=== PATIENT | female | born 1945 | race Caucasian/White ===

== ENCOUNTER 2016-07-18 09:20 | Outpatient (CLI) | payer MEDICARE, MEDICAID | END 2016-07-18 09:21 | disposition home or self-care (01) | DX: E11.9 Type 2 diabetes mellitus without complications (principal) ==

== ENCOUNTER 2016-08-15 08:45 | Outpatient (CLI) | payer MEDICARE, MEDICAID ==
[2016-08-15 09:18] LABS: BASOPHILS # (AUTO) 0.1 10^3/uL (0.0-0.1); BASOPHILS % (AUTO) 0.6 %; EOSINOPHILS # (AUTO) 0.2 10^3/uL (0.0-0.7); EOSINOPHILS % (AUTO) 1.7 %; HCT - HEMATOCRIT 35.5 % (37.0-47.0); HGB - HEMOGLOBIN 12.1 g/dL (12.0-16.0); LYMPHOCYTES # (AUTO) 1.8 10^3/uL (1.5-3.5); LYMPHOCYTES % (AUTO) 18.1 %; MEAN CORPUSCULAR HEMOGLOBIN 32.2 pg (27.0-31.0); MEAN CORPUSCULAR HGB CONC 34.1 g/dL (32.0-36.0); MEAN CORPUSCULAR VOLUME 94.3 fL (81.0-99.0); MONOCYTES # (AUTO) 0.6 10^3/uL (0.0-1.0); MONOCYTES % (AUTO) 5.4 %; NEUTROPHILS # (AUTO) 7.5 10^3/uL (1.5-6.6); NEUTROPHILS % (AUTO) 74.2 %; RED BLOOD COUNT 3.76 10^6/uL (4.20-5.40); RED CELL DISTRIBUTION WIDTH 12.6 % (12.0-15.0); UNCORRECTED WHITE BLOOD COUNT 10.2 x10^3/uL; WHITE BLOOD COUNT 10.2 x10^3/uL (4.8-10.8)
[2016-08-15 09:40] LABS: FERRITIN 457.4 ng/mL (11.0-306.8)
[2016-08-15 09:44] LABS: CREATININE 1.9 mg/dL (0.4-1.0); PHOSPHORUS 3.3 mg/dL (2.5-4.6)
== END 2016-08-15 08:46 | disposition home or self-care (01) ==
LOC: LAB 08:45
PROVIDERS: ATTEND Internal Medicine Nephrology
DX: N05.9 Unspecified nephritic syndrome with unspecified morphologic changes (principal); I50.9 Heart failure, unspecified; D70.9 Neutropenia, unspecified; D50.0 Iron deficiency anemia secondary to blood loss (chronic); E83.30 Disorder of phosphorus metabolism, unspecified; N25.81 Secondary hyperparathyroidism of renal origin
CPT/HCPCS: 36415; 80048; 82728; 83540; 83880; 83970; 84100; 84466; 85025

== ENCOUNTER 2016-10-21 09:25 | Outpatient (CLI) | payer MEDICARE, MEDICAID | END 2016-10-21 09:26 | disposition home or self-care (01) | DX: E11.9 Type 2 diabetes mellitus without complications (principal) ==

== ENCOUNTER 2017-01-09 09:00 | Outpatient (CLI) | payer MEDICARE, MEDICAID ==
[2017-01-09 13:50] LABS: HCT - HEMATOCRIT 34.3 % (37.0-47.0); HGB - HEMOGLOBIN 11.7 g/dL (12.0-16.0); MEAN CORPUSCULAR HEMOGLOBIN 31.9 pg (27.0-31.0); MEAN CORPUSCULAR VOLUME 93.9 fL (81.0-99.0); MEAN PLATELET VOLUME 9.4 fL (7.9-10.8); RED BLOOD COUNT 3.66 10^6/uL (4.20-5.40); RED CELL DISTRIBUTION WIDTH 12.4 % (12.0-15.0); WHITE BLOOD COUNT 10.3 x10^3/uL (4.8-10.8)
[2017-01-09 14:23] LABS: CALCIUM 8.9 mg/dL (8.5-10.3); CREATININE 1.6 mg/dL (0.4-1.0); PHOSPHORUS 2.6 mg/dL (2.5-4.6); POTASSIUM 3.9 mmol/L (3.5-5.0)
== END 2017-01-09 09:01 | disposition home or self-care (01) ==
LOC: LAB.N 09:00
PROVIDERS: ATTEND Internal Medicine Nephrology
DX: N05.9 Unspecified nephritic syndrome with unspecified morphologic changes (principal); D63.1 Anemia in chronic kidney disease; N25.81 Secondary hyperparathyroidism of renal origin
CPT/HCPCS: 36415; 80048; 83880; 83970; 84100

== ENCOUNTER 2017-01-20 07:53 | Outpatient (CLI) | payer MEDICARE, MEDICAID ==
[2017-01-20 13:11] LABS: HEMOGLOBIN A1C 0.6 g/dL
== END 2017-01-20 07:54 | disposition home or self-care (01) ==
LOC: LAB.N 07:53
PROVIDERS: ATTEND Nurse Practitioner Gerontology
DX: E11.9 Type 2 diabetes mellitus without complications (principal)
CPT/HCPCS: 36415; 83036

== ENCOUNTER 2017-05-01 10:24 | Outpatient (CLI) | payer MEDICARE, MEDICAID ==
[2017-05-01 13:36] LABS: HEMOGLOBIN A1C 0.55 g/dL
== END 2017-05-01 10:25 | disposition home or self-care (01) ==
LOC: LAB.N 10:24
PROVIDERS: ATTEND Nurse Practitioner Gerontology
DX: E11.9 Type 2 diabetes mellitus without complications (principal)
CPT/HCPCS: 36415; 83036

== ENCOUNTER 2017-08-05 08:00 | Outpatient (CLI) | payer MEDICARE, MEDICAID ==
[2017-08-05 13:08] LABS: BASOPHILS # (AUTO) 0.3 10^3/uL (0.0-0.1); BASOPHILS % (AUTO) 2.2 %; EOSINOPHILS # (AUTO) 0.3 10^3/uL (0.0-0.7); EOSINOPHILS % (AUTO) 2.3 %; HGB - HEMOGLOBIN 11.5 g/dL (12.0-16.0); LYMPHOCYTES # (AUTO) 2.4 10^3/uL (1.5-3.5); LYMPHOCYTES % (AUTO) 18.8 %; MEAN CORPUSCULAR HEMOGLOBIN 31.9 pg (27.0-31.0); MEAN CORPUSCULAR HGB CONC 34.9 g/dL (32.0-36.0); MEAN CORPUSCULAR VOLUME 91.4 fL (81.0-99.0); MEAN PLATELET VOLUME 8.6 fL (7.9-10.8); MONOCYTES # (AUTO) 0.7 10^3/uL (0.0-1.0); MONOCYTES % (AUTO) 5.7 %; NEUTROPHILS # (AUTO) 9.1 10^3/uL (1.5-6.6); PLT - PLATELET COUNT 308 10^3/uL (130-450); RED BLOOD COUNT 3.59 10^6/uL (4.20-5.40); RED CELL DISTRIBUTION WIDTH 12.3 % (12.0-15.0); WHITE BLOOD COUNT 12.9 x10^3/uL (4.8-10.8)
[2017-08-05 13:22] LABS: ALBUMIN 3.9 g/dL (3.2-5.5); ALBUMIN/GLOBULIN RATIO 1.1 (1.0-2.2); BILIRUBIN,TOTAL 0.4 mg/dL (0.2-1.0); CALCIUM 8.5 mg/dL (8.5-10.3); TOTAL PROTEIN 7.6 g/dL (6.7-8.2)
[2017-08-05 17:32] LABS: HB2 TOTAL 11.7 g/dL; HEMOGLOBIN A1C 0.44 g/dL; HEMOGLOBIN A1C % 5.6 % (4.6-6.2)
== END 2017-08-05 08:01 | disposition home or self-care (01) ==
LOC: LAB.N 08:00
PROVIDERS: ATTEND Nurse Practitioner Gerontology
DX: N18.4 Chronic kidney disease, stage 4 (severe) (principal); E11.9 Type 2 diabetes mellitus without complications
CPT/HCPCS: 36415; 80053; 82043; 83036; 85025

== ENCOUNTER 2017-09-04 09:03 | Outpatient (CLI) | payer MEDICARE, MEDICAID ==
[2017-09-04 12:41] LABS: HGB - HEMOGLOBIN 10.8 g/dL (12.0-16.0); MEAN CORPUSCULAR HEMOGLOBIN 31.8 pg (27.0-31.0); MEAN CORPUSCULAR VOLUME 93.5 fL (81.0-99.0); MEAN PLATELET VOLUME 8.8 fL (7.9-10.8); RED BLOOD COUNT 3.39 10^6/uL (4.20-5.40); RED CELL DISTRIBUTION WIDTH 12.4 % (12.0-15.0); WHITE BLOOD COUNT 11.1 x10^3/uL (4.8-10.8)
[2017-09-04 12:52] LABS: CALCIUM 8.3 mg/dL (8.5-10.3); CREATININE 1.8 mg/dL (0.4-1.0)
[2017-09-04 13:00] LABS: FERRITIN 510.2 ng/mL (11.0-306.8)
[2017-09-04 13:03] LABS: FOLATE 11.22 ng/mL (5.90 - >24.8)
== END 2017-09-04 09:04 | disposition home or self-care (01) ==
LOC: LAB.N 09:03
PROVIDERS: ATTEND Internal Medicine Nephrology
DX: N05.9 Unspecified nephritic syndrome with unspecified morphologic changes (principal); D70.9 Neutropenia, unspecified; D63.1 Anemia in chronic kidney disease; D50.0 Iron deficiency anemia secondary to blood loss (chronic); E11.9 Type 2 diabetes mellitus without complications
CPT/HCPCS: 36415; 80048; 82607; 82728; 82746; 83540; 84466

== ENCOUNTER 2017-11-12 09:07 | Outpatient (CLI) | payer MEDICARE, MEDICAID ==
[2017-11-12 13:21] LABS: HB2 TOTAL 11.8 g/dL; HEMOGLOBIN A1C 0.51 g/dL; HEMOGLOBIN A1C % 6.1 % (4.6-6.2)
[2017-11-12 13:27] LABS: CALCIUM 8.8 mg/dL (8.5-10.3); CREATININE 1.7 mg/dL (0.4-1.0)
== END 2017-11-12 09:08 | disposition home or self-care (01) ==
LOC: LAB.N 09:07
PROVIDERS: ATTEND Nurse Practitioner Gerontology
DX: E11.628 Type 2 diabetes mellitus with other skin complications (principal)
CPT/HCPCS: 36415; 80048; 82043; 83036

== ENCOUNTER 2018-01-22 08:03 | Outpatient (CLI) | payer MEDICARE, MEDICAID ==
[2018-01-22 13:52] LABS: HGB - HEMOGLOBIN 11.3 g/dL (12.0-16.0); MEAN CORPUSCULAR HEMOGLOBIN 31.5 pg (27.0-31.0); MEAN CORPUSCULAR HGB CONC 32.8 g/dL (32.0-36.0); MEAN CORPUSCULAR VOLUME 96.1 fL (81.0-99.0); MEAN PLATELET VOLUME 8.3 fL (7.9-10.8); RED BLOOD COUNT 3.59 10^6/uL (4.20-5.40); RED CELL DISTRIBUTION WIDTH 12.6 % (12.0-15.0); WHITE BLOOD COUNT 11.5 x10^3/uL (4.8-10.8)
[2018-01-22 13:54] LABS: CALCIUM 8.4 mg/dL (8.5-10.3); CREATININE 1.6 mg/dL (0.4-1.0)
== END 2018-01-22 08:04 | disposition home or self-care (01) ==
LOC: LAB.N 08:03
PROVIDERS: ATTEND Internal Medicine Nephrology
DX: N05.9 Unspecified nephritic syndrome with unspecified morphologic changes (principal); D70.9 Neutropenia, unspecified
CPT/HCPCS: 36415; 80048; 85027

== ENCOUNTER 2018-02-15 08:00 | Outpatient (CLI) | payer MEDICARE, MEDICAID ==
[2018-02-15 13:13] LABS: CALCIUM 8.8 mg/dL (8.5-10.3); CREATININE 1.8 mg/dL (0.4-1.0)
[2018-02-15 13:59] LABS: HB2 TOTAL 12.8 g/dL; HEMOGLOBIN A1C 0.54 g/dL
== END 2018-02-15 08:01 ==
LOC: LAB.N 08:00
PROVIDERS: ATTEND Nurse Practitioner Gerontology
DX: E11.29 Type 2 diabetes mellitus with other diabetic kidney complication (principal); N18.4 Chronic kidney disease, stage 4 (severe); E11.628 Type 2 diabetes mellitus with other skin complications
CPT/HCPCS: 36415; 80048; 82043; 83036

== ENCOUNTER 2018-04-12 08:07 | Outpatient (CLI) | payer MEDICARE, MEDICAID ==
[2018-04-12 09:06] LABS: CALCIUM 8.6 mg/dL (8.5-10.3); CREATININE 1.3 mg/dL (0.4-1.0); PHOSPHORUS 2.4 mg/dL (2.5-4.6)
== END 2018-04-12 08:08 | disposition home or self-care (01) ==
LOC: LAB 08:07
PROVIDERS: ATTEND Internal Medicine Nephrology
DX: N05.9 Unspecified nephritic syndrome with unspecified morphologic changes (principal); E83.30 Disorder of phosphorus metabolism, unspecified; N25.81 Secondary hyperparathyroidism of renal origin
CPT/HCPCS: 36415; 80048; 83970; 84100

== ENCOUNTER 2018-05-24 08:00 | Outpatient (CLI) | payer MEDICARE, MEDICAID ==
[2018-05-24 15:52] LABS: HEMOGLOBIN A1C 0.48 g/dL; HEMOGLOBIN A1C % 6.1 % (4.6-6.2)
== END 2018-05-24 08:01 | disposition home or self-care (01) ==
LOC: LAB.N 08:00
PROVIDERS: ATTEND Nurse Practitioner Gerontology
DX: E11.9 Type 2 diabetes mellitus without complications (principal)
CPT/HCPCS: 36415; 83036

== ENCOUNTER 2018-07-09 08:03 | Outpatient (CLI) | payer MEDICARE, MEDICAID ==
[2018-07-09 14:42] LABS: MEAN CORPUSCULAR HEMOGLOBIN 31.9 pg (27.0-31.0); MEAN CORPUSCULAR VOLUME 93.9 fL (81.0-99.0); MEAN PLATELET VOLUME 8.7 fL (7.9-10.8); RED BLOOD COUNT 3.77 10^6/uL (4.20-5.40); RED CELL DISTRIBUTION WIDTH 12.8 % (12.0-15.0); WHITE BLOOD COUNT 10.4 x10^3/uL (4.8-10.8)
[2018-07-09 15:08] LABS: CALCIUM 8.7 mg/dL (8.5-10.3)
[2018-07-09 16:16] LABS: CREATININE 1.2 mg/dL (0.4-1.0)
== END 2018-07-09 23:59 | disposition home or self-care (01) ==
LOC: LAB.N 08:03
PROVIDERS: ATTEND Internal Medicine Nephrology
DX: D70.9 Neutropenia, unspecified (principal); N05.9 Unspecified nephritic syndrome with unspecified morphologic changes; D63.1 Anemia in chronic kidney disease
CPT/HCPCS: 36415; 80048; 85027

== ENCOUNTER 2018-08-31 08:10 | Outpatient (CLI) | payer MEDICARE, MEDICAID ==
[2018-08-31 13:36] LABS: HB2 TOTAL 12.7 g/dL; HEMOGLOBIN A1C 0.49 g/dL; HEMOGLOBIN A1C % 5.7 % (4.6-6.2)
== END 2018-08-31 23:59 | disposition home or self-care (01) ==
LOC: LAB.N 08:10
PROVIDERS: ATTEND Nurse Practitioner Gerontology
DX: E11.628 Type 2 diabetes mellitus with other skin complications (principal)
CPT/HCPCS: 36415; 83036

== ENCOUNTER 2018-11-30 08:00 | Outpatient (CLI) | payer MEDICARE, MEDICAID ==
[2018-11-30 13:54] LABS: CALCIUM 8.4 mg/dL (8.5-10.3); CREATININE 1.3 mg/dL (0.4-1.0)
[2018-11-30 14:24] LABS: HB2 TOTAL 11.9 g/dL; HEMOGLOBIN A1C 0.46 g/dL; HEMOGLOBIN A1C % 5.7 % (4.6-6.2)
== END 2018-11-30 23:59 | disposition home or self-care (01) ==
LOC: LAB.N 08:00
PROVIDERS: ATTEND Physician Assistant Medical
DX: R60.0 Localized edema (principal); E78.5 Hyperlipidemia, unspecified; I12.9 Hypertensive chronic kidney disease with stage 1 through stage 4 chronic kidney disease, or unspecified chronic kidney disease; E11.22 Type 2 diabetes mellitus with diabetic chronic kidney disease; N18.4 Chronic kidney disease, stage 4 (severe)
CPT/HCPCS: 36415; 80048; 83036

== ENCOUNTER 2018-12-03 08:49 | Outpatient (CLI) | payer MEDICARE, MEDICAID ==
[2018-12-03 09:17] LABS: CALCIUM 8.3 mg/dL (8.5-10.3); CREATININE 1.3 mg/dL (0.4-1.0)
[2018-12-03 09:36] LABS: HB2 TOTAL 10.9 g/dL; HEMOGLOBIN A1C 0.44 g/dL; HEMOGLOBIN A1C % 5.8 % (4.6-6.2)
[2018-12-03 10:03] LABS: CREATININE,URINE 40.7 mg/dL
[2018-12-03 11:12] LABS: TOTAL PROTEIN,URINE TIMED < 6 mg/dL
== END 2018-12-03 08:50 | disposition home or self-care (01) ==
LOC: LAB 08:49
PROVIDERS: ATTEND Internal Medicine Nephrology
DX: N05.9 Unspecified nephritic syndrome with unspecified morphologic changes (principal); E11.9 Type 2 diabetes mellitus without complications; I50.32 Chronic diastolic (congestive) heart failure; R80.9 Proteinuria, unspecified
CPT/HCPCS: 36415; 80048; 82570; 83036; 83880; 84156

== ENCOUNTER 2019-03-08 08:00 | Outpatient (CLI) | payer MEDICARE, MEDICAID ==
[2019-03-08 14:49] LABS: HB2 TOTAL 10.8 g/dL; HEMOGLOBIN A1C 0.47 g/dL; HEMOGLOBIN A1C % 6.1 % (4.6-6.2)
== END 2019-03-08 23:59 | disposition home or self-care (01) ==
LOC: LAB.N 08:00
PROVIDERS: ATTEND Nurse Practitioner Gerontology
DX: E11.628 Type 2 diabetes mellitus with other skin complications (principal)
CPT/HCPCS: 36415; 83036

== ENCOUNTER 2019-05-25 09:12 | Outpatient (CLI) | payer MEDICARE, MEDICAID ==
[2019-05-25 13:04] LABS: BASOPHILS # (AUTO) 0.1 10^3/uL (0.0-0.1); BASOPHILS % (AUTO) 0.4 %; EOSINOPHILS # (AUTO) 0.1 10^3/uL (0.0-0.7); EOSINOPHILS % (AUTO) 0.8 %; HGB - HEMOGLOBIN 11.4 g/dL (12.0-16.0); LYMPHOCYTES # (AUTO) 1.7 10^3/uL (1.5-3.5); LYMPHOCYTES % (AUTO) 14.2 %; MEAN CORPUSCULAR HGB CONC 31.1 g/dL (32.0-36.0); MEAN CORPUSCULAR VOLUME 99.5 fL (81.0-99.0); MEAN PLATELET VOLUME 11.1 fL (7.9-10.8); MONOCYTES # (AUTO) 0.5 10^3/uL (0.0-1.0); MONOCYTES % (AUTO) 4.1 %; NEUTROPHILS # (AUTO) 9.7 10^3/uL (1.5-6.6); NEUTROPHILS % (AUTO) 79.2 %; PLT - PLATELET COUNT 344 10^3/uL (130-450); RED BLOOD COUNT 3.68 10^6/uL (4.20-5.40); RED CELL DISTRIBUTION WIDTH 12.7 % (12.0-15.0); WHITE BLOOD COUNT 12.3 x10^3/uL (4.8-10.8)
[2019-05-25 15:52] LABS: CALCIUM 8.5 mg/dL (8.5-10.3); CREATININE 1.4 mg/dL (0.4-1.0)
== END 2019-05-25 23:59 | disposition home or self-care (01) ==
LOC: LAB.N 09:12
PROVIDERS: ATTEND Physician Assistant Medical
DX: E11.628 Type 2 diabetes mellitus with other skin complications (principal)
CPT/HCPCS: 36415; 80048; 85025

== ENCOUNTER 2019-07-18 07:38 | Outpatient (CLI) | payer MEDICARE, MEDICAID ==
[2019-07-18 12:46] LABS: CALCIUM 8.5 mg/dL (8.5-10.3); CREATININE 1.6 mg/dL (0.4-1.0)
[2019-07-18 13:14] LABS: HB2 TOTAL 12.2 g/dL; HEMOGLOBIN A1C 0.63 g/dL; HEMOGLOBIN A1C % 6.9 % (4.6-6.2)
== END 2019-07-18 23:59 | disposition home or self-care (01) ==
LOC: LAB.N 07:38
PROVIDERS: ATTEND Physician Assistant Medical
DX: E11.9 Type 2 diabetes mellitus without complications (principal)
CPT/HCPCS: 36415; 80048; 83036

== ENCOUNTER 2020-11-24 08:00 | Outpatient (CLI) | payer MEDICARE, MEDICAID ==
[2020-11-24 13:42] LABS: HCT - HEMATOCRIT 28.5 % (37.0-47.0); HGB - HEMOGLOBIN 9.1 g/dL (12.0-16.0); MEAN CORPUSCULAR HEMOGLOBIN 31.4 pg (27.0-31.0); MEAN CORPUSCULAR HGB CONC 31.9 g/dL (32.0-36.0); MEAN CORPUSCULAR VOLUME 98.3 fL (81.0-99.0); MEAN PLATELET VOLUME 10.9 fL (7.9-10.8); RED BLOOD COUNT 2.9 10^6/uL (4.20-5.40); RED CELL DISTRIBUTION WIDTH 13.8 % (12.0-15.0); WHITE BLOOD COUNT 10.5 x10^3/uL (4.8-10.8)
[2020-11-24 14:01] LABS: CALCIUM 8.2 mg/dL (8.5-10.3); CREATININE 1.4 mg/dL (0.4-1.0); POTASSIUM 3.9 mmol/L (3.5-5.0)
== END 2020-11-24 23:59 | disposition home or self-care (01) ==
LOC: LAB.WCP 08:00
PROVIDERS: ATTEND Family Medicine
DX: I50.9 Heart failure, unspecified (principal)
CPT/HCPCS: 36415; 80048; 83880; 85027

== ENCOUNTER 2020-11-24 09:54 | Outpatient (CLI) | payer MEDICARE, MEDICAID ==
--- NOTE | 2020-11-24 19:23 | XRAY Report ---
PROCEDURE: Chest 2 View X-Ray INDICATIONS: CHF EXACERBATION TECHNIQUE: 2 view(s) of the chest. COMPARISON: 08/03/2015, 06/30/2016 FINDINGS: Surgical changes and devices: None. Lungs and pleura: Generalized interstitial prominence is seen. No pleural effusions or pneumothorax. Lungs are clear. There is elevation right hemidiaphragm. Mediastinum: Mediastinal contours are normal. Heart size is moderately enlarged. Bones and chest wall: No suspicious bony abnormalities. Age-appropriate degenerative changes are se en. Soft tissues appear unremarkable. IMPRESSION: Generalized interstitial prominence and cardiomegaly can be seen, which are consistent w ith the given clinical history of CHF. There is elevation of the right hemidiaphragm. If clinically appropriate, a dedicated fluoroscopic "s niff test" could be considered for evaluation of hemidiaphragm paralysis. Reviewed by: Carloz Robison MD on 11/24/2020 6:22 PM BINAT Approved by: Carloz Robison MD on 11/24/2020 6:22 PM BINTA Station ID: [id number]
== END 2020-11-24 23:59 | disposition home or self-care (01) ==
LOC: DI.N 09:54
PROVIDERS: ATTEND Family Medicine
DX: R91.8 Other nonspecific abnormal finding of lung field (principal); R93.89 Abnormal findings on diagnostic imaging of other specified body structures; I50.9 Heart failure, unspecified
CPT/HCPCS: 36415; 80048; 83880; 85027

== ENCOUNTER 2020-12-04 08:00 | Outpatient (CLI) | payer MEDICARE, MEDICAID ==
[2020-12-04 18:30] LABS: BUN - BLOOD UREA NITROGEN 25 mg/dL (6-20); CALCIUM 8.6 mg/dL (8.5-10.3); CARBON DIOXIDE - CO2 19 mmol/L (21-32); CHLORIDE 113 mmol/L (101-111); CHOL/HDL RATIO 3.3 (<4.4); CHOLESTEROL 136 mg/dL; CREATININE 1.5 mg/dL (0.4-1.0); GFR - MDRD 34 (>89); GLUCOSE 132 mg/dL (70-100); HDL CHOLESTEROL 41 mg/dL; LDL CHOLESTEROL,CALCULATED 50 mg/dL; LDL/HDL RATIO 1.2 (<4.4); POTASSIUM 4.9 mmol/L (3.5-5.0); SODIUM 139 mmol/L (135-145); TRIGLYCERIDES 225 mg/dL; VLDL CHOLESTEROL 45 mg/dL
[2020-12-04 19:54] LABS: ESTIMATED AVERAGE GLUCOSE 151 mg/dL (70-100); HEMOGLOBIN A1c% 6.9 % (4.27-6.07)
== END 2020-12-04 23:59 | disposition home or self-care (01) ==
LOC: LAB.WCP 08:00
PROVIDERS: ATTEND Family Medicine
DX: I50.9 Heart failure, unspecified (principal); E11.9 Type 2 diabetes mellitus without complications
CPT/HCPCS: 36415; 80048; 80061; 83036; 83721

== ENCOUNTER 2021-01-09 08:00 | Outpatient (CLI) | payer MEDICARE, MEDICAID ==
[2021-01-09 09:17] LABS: ALBUMIN 4.1 g/dL (3.2-5.5); ALBUMIN/GLOBULIN RATIO 1.2 (1.0-2.2); BILIRUBIN,TOTAL 0.3 mg/dL (0.2-1.0); CALCIUM 8.1 mg/dL (8.5-10.3); CREATININE 3.3 mg/dL (0.4-1.0); POTASSIUM 4.3 mmol/L (3.5-5.0); TOTAL PROTEIN 7.5 g/dL (6.7-8.2)
== END 2021-01-09 23:59 | disposition home or self-care (01) ==
LOC: LAB 08:00 → DI 08:45 → LAB 23:59
PROVIDERS: ATTEND Internal Medicine Nephrology
DX: N05.9 Unspecified nephritic syndrome with unspecified morphologic changes (principal)
CPT/HCPCS: 36415; 80053

== ENCOUNTER 2021-01-17 08:49 | Outpatient (CLI) | payer MEDICARE, MEDICAID ==
[2021-01-17 09:21] LABS: ALBUMIN/GLOBULIN RATIO 1.3 (1.0-2.2); BILIRUBIN,TOTAL 0.3 mg/dL (0.2-1.0); CALCIUM 8.3 mg/dL (8.5-10.3); CREATININE 2.5 mg/dL (0.4-1.0); POTASSIUM 4.1 mmol/L (3.5-5.0); TOTAL PROTEIN 7.1 g/dL (6.7-8.2)
== END 2021-01-17 08:50 | disposition home or self-care (01) ==
LOC: LAB 08:49
PROVIDERS: ATTEND Internal Medicine Nephrology
DX: N05.9 Unspecified nephritic syndrome with unspecified morphologic changes (principal); D70.9 Neutropenia, unspecified; D63.1 Anemia in chronic kidney disease
CPT/HCPCS: 36415; 80053

== ENCOUNTER 2021-02-06 08:37 | Outpatient (CLI) | payer MEDICARE, MEDICAID ==
[2021-02-06 09:02] LABS: BASOPHILS % (AUTO) 0.4 %; EOSINOPHILS # (AUTO) 0.2 10^3/uL (0.0-0.7); HCT - HEMATOCRIT 30.9 % (37.0-47.0); HGB - HEMOGLOBIN 10.2 g/dL (12.0-16.0); LYMPHOCYTES # (AUTO) 1.6 10^3/uL (1.5-3.5); MEAN CORPUSCULAR HEMOGLOBIN 31.6 pg (27.0-31.0); MEAN CORPUSCULAR VOLUME 95.7 fL (81.0-99.0); MEAN PLATELET VOLUME 9.5 fL (7.9-10.8); MONOCYTES # (AUTO) 0.5 10^3/uL (0.0-1.0); MONOCYTES % (AUTO) 4.5 %; NEUTROPHILS # (AUTO) 8.1 10^3/uL (1.5-6.6); NEUTROPHILS % (AUTO) 76.7 %; PLT - PLATELET COUNT 267 10^3/uL (130-450); RED BLOOD COUNT 3.23 10^6/uL (4.20-5.40); RED CELL DISTRIBUTION WIDTH 12.8 % (12.0-15.0); WHITE BLOOD COUNT 10.6 x10^3/uL (4.8-10.8)
[2021-02-06 09:16] LABS: CALCIUM 8.5 mg/dL (8.5-10.3); CREATININE 1.7 mg/dL (0.4-1.0); POTASSIUM 3.7 mmol/L (3.5-5.0)
== END 2021-02-06 08:38 | disposition home or self-care (01) ==
LOC: LAB 08:37
PROVIDERS: ATTEND Internal Medicine Nephrology
DX: N05.9 Unspecified nephritic syndrome with unspecified morphologic changes (principal); I50.32 Chronic diastolic (congestive) heart failure; D70.9 Neutropenia, unspecified; D63.1 Anemia in chronic kidney disease
CPT/HCPCS: 36415; 80048; 83880; 85025

== ENCOUNTER 2021-03-13 07:18 | Outpatient (CLI) | payer MEDICARE, MEDICAID | END 2021-03-13 07:19 | disposition home or self-care (01) | LOC: DI 07:18 | PROVIDERS: ATTEND Family Medicine | DX: I11.0 Hypertensive heart disease with heart failure (principal); I49.3 Ventricular premature depolarization | CPT/HCPCS: 93306 ==

== ENCOUNTER 2021-03-18 10:21 | Outpatient (CLI) | payer MEDICARE, MEDICAID ==
[2021-03-18 17:46] LABS: BASOPHILS # (AUTO) 0.1 10^3/uL (0.0-0.1); BASOPHILS % (AUTO) 0.6 %; EOSINOPHILS # (AUTO) 0.2 10^3/uL (0.0-0.7); EOSINOPHILS % (AUTO) 1.4 %; HCT - HEMATOCRIT 32.7 % (37.0-47.0); HGB - HEMOGLOBIN 10.1 g/dL (12.0-16.0); LYMPHOCYTES # (AUTO) 2.1 10^3/uL (1.5-3.5); LYMPHOCYTES % (AUTO) 16.5 %; MEAN CORPUSCULAR HEMOGLOBIN 30.8 pg (27.0-31.0); MEAN CORPUSCULAR HGB CONC 30.9 g/dL (32.0-36.0); MEAN CORPUSCULAR VOLUME 99.7 fL (81.0-99.0); MEAN PLATELET VOLUME 11.1 fL (7.9-10.8); MONOCYTES # (AUTO) 0.7 10^3/uL (0.0-1.0); MONOCYTES % (AUTO) 5.3 %; NEUTROPHILS # (AUTO) 9.3 10^3/uL (1.5-6.6); NEUTROPHILS % (AUTO) 74.2 %; PLT - PLATELET COUNT 320 10^3/uL (130-450); RED BLOOD COUNT 3.28 10^6/uL (4.20-5.40); RED CELL DISTRIBUTION WIDTH 13.3 % (12.0-15.0); WHITE BLOOD COUNT 12.6 x10^3/uL (4.8-10.8)
[2021-03-18 18:12] LABS: ALBUMIN/GLOBULIN RATIO 1.2 (1.0-2.2); ALKALINE PHOSPHATASE 97 IU/L (42-121); ALT ALANINE AMINOTRANSFERASE 24 IU/L (10-60); AST ASPARTATE AMINOTRANSFERASE 29 IU/L (10-42); BILIRUBIN,TOTAL 0.5 mg/dL (0.2-1.0); BUN - BLOOD UREA NITROGEN 34 mg/dL (6-20); CALCIUM 8.7 mg/dL (8.5-10.3); CARBAMAZEPINE (TEGRETOL) 5.6 ug/mL; CARBON DIOXIDE - CO2 21 mmol/L (21-32); CHLORIDE 105 mmol/L (101-111); CHOL/HDL RATIO 3.9 (<4.4); CHOLESTEROL 125 mg/dL; CREATININE 1.5 mg/dL (0.4-1.0); GFR - MDRD 34 (>89); GLUCOSE 377 mg/dL (70-100); HDL CHOLESTEROL 32 mg/dL; LDL CHOLESTEROL,CALCULATED 37 mg/dL; LDL/HDL RATIO 1.2 (<4.4); POTASSIUM 4.8 mmol/L (3.5-5.0); SODIUM 137 mmol/L (135-145); TOTAL PROTEIN 7.3 g/dL (6.7-8.2); TRIGLYCERIDES 279 mg/dL; VLDL CHOLESTEROL 56 mg/dL
[2021-03-18 18:18] LABS: THYROID STIMULATING HORMONE 3.76 uIU/mL (0.34-5.60)
[2021-03-18 20:40] LABS: ESTIMATED AVERAGE GLUCOSE 163 mg/dL (70-100); HEMOGLOBIN A1c% 7.3 % (4.27-6.07)
== END 2021-03-18 23:59 | disposition home or self-care (01) ==
LOC: LAB.WCP 10:21
PROVIDERS: ATTEND Family Medicine
DX: E11.22 Type 2 diabetes mellitus with diabetic chronic kidney disease (principal); N18.30 Chronic kidney disease, stage 3 unspecified; F20.9 Schizophrenia, unspecified
CPT/HCPCS: 36415; 80053; 80061; 80156; 83036; 83721; 84443; 85025

== ENCOUNTER 2021-03-29 09:04 | Outpatient (CLI) | payer MEDICARE, MEDICAID ==
[2021-03-29 09:28] LABS: CALCIUM 8.3 mg/dL (8.5-10.3); CREATININE 1.7 mg/dL (0.4-1.0); POTASSIUM 3.8 mmol/L (3.5-5.0)
== END 2021-03-29 09:05 | disposition home or self-care (01) ==
LOC: LAB 09:04
PROVIDERS: ATTEND Internal Medicine Nephrology
DX: N05.9 Unspecified nephritic syndrome with unspecified morphologic changes (principal); I50.32 Chronic diastolic (congestive) heart failure
CPT/HCPCS: 36415; 80048; 83880

== ENCOUNTER 2021-06-18 09:28 | Outpatient (CLI) | payer MEDICARE, MEDICAID ==
[2021-06-18 12:26] LABS: ALBUMIN 3.9 g/dL (3.2-5.5); ALBUMIN/GLOBULIN RATIO 1.3 (1.0-2.2); BILIRUBIN,TOTAL 0.3 mg/dL (0.2-1.0); CALCIUM 8.6 mg/dL (8.5-10.3); CREATININE 1.3 mg/dL (0.4-1.0); POTASSIUM 4.4 mmol/L (3.5-5.0)
[2021-06-18 12:48] LABS: ESTIMATED AVERAGE GLUCOSE 212 mg/dL (70-100)
== END 2021-06-18 23:59 | disposition home or self-care (01) ==
LOC: LAB.WCP 09:28
PROVIDERS: ATTEND Family Medicine
DX: E11.9 Type 2 diabetes mellitus without complications (principal)
CPT/HCPCS: 36415; 80053; 83036

== ENCOUNTER 2021-08-21 08:29 | Outpatient (CLI) | payer MEDICARE, MEDICAID ==
[2021-08-21 08:59] LABS: HCT - HEMATOCRIT 36.7 % (37.0-47.0); HGB - HEMOGLOBIN 11.9 g/dL (12.0-16.0); MEAN CORPUSCULAR HEMOGLOBIN 30.7 pg (27.0-31.0); MEAN CORPUSCULAR HGB CONC 32.4 g/dL (32.0-36.0); MEAN CORPUSCULAR VOLUME 94.6 fL (81.0-99.0); MEAN PLATELET VOLUME 10.4 fL (7.9-10.8); RED BLOOD COUNT 3.88 10^6/uL (4.20-5.40); WHITE BLOOD COUNT 9.4 x10^3/uL (4.8-10.8)
[2021-08-21 09:11] LABS: ALBUMIN 3.7 g/dL (3.2-5.5); ALBUMIN/GLOBULIN RATIO 1.2 (1.0-2.2); BILIRUBIN,TOTAL 0.5 mg/dL (0.2-1.0); CALCIUM 8.2 mg/dL (8.5-10.3); CREATININE 1.5 mg/dL (0.4-1.0); POTASSIUM 3.3 mmol/L (3.5-5.0); TOTAL PROTEIN 6.9 g/dL (6.7-8.2)
[2021-08-21 09:15] LABS: CREATININE,URINE 114.5 mg/dL; PROTEIN/CREATININE RATIO,URINE 0.3 (<=0.2)
== END 2021-08-21 08:30 | disposition home or self-care (01) ==
LOC: LAB 08:29
PROVIDERS: ATTEND Internal Medicine Nephrology
DX: D70.9 Neutropenia, unspecified (principal); D63.1 Anemia in chronic kidney disease; N05.9 Unspecified nephritic syndrome with unspecified morphologic changes; R80.9 Proteinuria, unspecified
CPT/HCPCS: 36415; 80053; 82570; 84156; 85027

== ENCOUNTER 2021-09-25 08:43 | Outpatient (CLI) | payer MEDICARE, MEDICAID ==
[2021-09-25 11:59] LABS: BASOPHILS # (AUTO) 0.1 10^3/uL (0.0-0.1); BASOPHILS % (AUTO) 0.5 %; EOSINOPHILS # (AUTO) 0.3 10^3/uL (0.0-0.7); EOSINOPHILS % (AUTO) 2.3 %; HCT - HEMATOCRIT 31.8 % (37.0-47.0); HGB - HEMOGLOBIN 10.6 g/dL (12.0-16.0); LYMPHOCYTES # (AUTO) 2.3 10^3/uL (1.5-3.5); LYMPHOCYTES % (AUTO) 16.1 %; MEAN CORPUSCULAR HEMOGLOBIN 30.9 pg (27.0-31.0); MEAN CORPUSCULAR HGB CONC 33.3 g/dL (32.0-36.0); MEAN CORPUSCULAR VOLUME 92.7 fL (81.0-99.0); MEAN PLATELET VOLUME 11.3 fL (7.9-10.8); MONOCYTES # (AUTO) 0.7 10^3/uL (0.0-1.0); MONOCYTES % (AUTO) 4.6 %; NEUTROPHILS # (AUTO) 10.9 10^3/uL (1.5-6.6); NEUTROPHILS % (AUTO) 74.8 %; PLT - PLATELET COUNT 353 10^3/uL (130-450); RED BLOOD COUNT 3.43 10^6/uL (4.20-5.40); RED CELL DISTRIBUTION WIDTH 13.1 % (12.0-15.0); WHITE BLOOD COUNT 14.5 x10^3/uL (4.8-10.8)
[2021-09-25 12:40] LABS: ESTIMATED AVERAGE GLUCOSE 189 mg/dL (70-100); HEMOGLOBIN A1c% 8.2 % (4.27-6.07)
[2021-09-25 12:43] LABS: THYROID STIMULATING HORMONE 2.35 uIU/mL (0.34-5.60)
[2021-09-25 12:46] LABS: ALBUMIN 4.1 g/dL (3.2-5.5); ALBUMIN/GLOBULIN RATIO 1.4 (1.0-2.2); ALKALINE PHOSPHATASE 96 IU/L (42-121); ALT ALANINE AMINOTRANSFERASE 18 IU/L (10-60); AST ASPARTATE AMINOTRANSFERASE 26 IU/L (10-42); BILIRUBIN,TOTAL 0.3 mg/dL (0.2-1.0); BUN - BLOOD UREA NITROGEN 24 mg/dL (6-20); CARBON DIOXIDE - CO2 16 mmol/L (21-32); CHLORIDE 109 mmol/L (101-111); CHOL/HDL RATIO 2.7 (<4.4); CHOLESTEROL 96 mg/dL; CREATININE 1.4 mg/dL (0.4-1.0); GFR - MDRD 37 (>89); HDL CHOLESTEROL 36 mg/dL; LDL CHOLESTEROL,CALCULATED 32 mg/dL; LDL/HDL RATIO 0.9 (<4.4); POTASSIUM 3.2 mmol/L (3.5-5.0); SODIUM 137 mmol/L (135-145); TOTAL PROTEIN 7.1 g/dL (6.7-8.2); TRIGLYCERIDES 139 mg/dL; VLDL CHOLESTEROL 28 mg/dL
[2021-09-25 12:53] LABS: GLUCOSE 47 mg/dL (70-100)
== END 2021-09-25 08:44 | disposition home or self-care (01) ==
LOC: LAB.N 08:43
PROVIDERS: ATTEND Nurse Practitioner Family
DX: E11.9 Type 2 diabetes mellitus without complications (principal); E78.5 Hyperlipidemia, unspecified; D64.9 Anemia, unspecified
CPT/HCPCS: 36415; 80053; 80061; 83036; 83721; 84443; 85025

== ENCOUNTER 2021-12-16 17:26 | Outpatient (CLI) | payer MEDICARE, MEDICAID | END 2021-12-16 17:27 | disposition left against medical advice (07) | LOC: EMS 17:26 | DX: E11.649 Type 2 diabetes mellitus with hypoglycemia without coma (principal) ==

== ENCOUNTER → 2021-12-29 | Outpatient (CLI) | payer MEDICARE, MEDICAID | END | disposition left against medical advice (07) | LOC: EMS 06:17 | DX: E11.649 Type 2 diabetes mellitus with hypoglycemia without coma (principal) ==

== ENCOUNTER 2022-01-13 07:23 | Outpatient (CLI) | payer MEDICARE, MEDICAID | END 2022-01-13 07:24 | disposition critical access hospital (66) | LOC: EMS 07:23 | DX: E11.649 Type 2 diabetes mellitus with hypoglycemia without coma (principal) | CPT/HCPCS: A0425; A0427 ==

== ENCOUNTER 2022-01-13 12:31 | Outpatient (CLI) | payer MEDICARE, MEDICAID | END 2022-01-13 12:32 | disposition home or self-care (01) | LOC: EMS 12:31 | PROVIDERS: ATTEND Emergency Medicine | DX: R41.0 Disorientation, unspecified (principal); Z99.3 Dependence on wheelchair; E16.2 Hypoglycemia, unspecified | CPT/HCPCS: A0425; A0428 ==

== ENCOUNTER 2022-05-20 09:54 | Outpatient (CLI) | payer MEDICARE, MEDICAID | END 2022-05-20 09:55 | disposition EMS.NT | LOC: EMS 09:54 | DX: Z03.89 Encounter for observation for other suspected diseases and conditions ruled out (principal) ==

== ENCOUNTER 2022-06-09 08:42 | Outpatient (CLI) | payer MEDICARE, MEDICAID ==
[2022-06-09 12:47] LABS: BASOPHILS # (AUTO) 0.1 10^3/uL (0.0-0.1); BASOPHILS % (AUTO) 0.4 %; EOSINOPHILS # (AUTO) 0.2 10^3/uL (0.0-0.7); EOSINOPHILS % (AUTO) 1.9 %; HGB - HEMOGLOBIN 9.1 g/dL (12.0-16.0); LYMPHOCYTES # (AUTO) 2.1 10^3/uL (1.5-3.5); LYMPHOCYTES % (AUTO) 17.3 %; MEAN CORPUSCULAR HEMOGLOBIN 31.8 pg (27.0-31.0); MEAN CORPUSCULAR HGB CONC 30.3 g/dL (32.0-36.0); MEAN CORPUSCULAR VOLUME 104.9 fL (81.0-99.0); MEAN PLATELET VOLUME 10.5 fL (7.9-10.8); MONOCYTES # (AUTO) 0.7 10^3/uL (0.0-1.0); MONOCYTES % (AUTO) 5.6 %; NEUTROPHILS # (AUTO) 8.7 10^3/uL (1.5-6.6); NEUTROPHILS % (AUTO) 73.3 %; PLT - PLATELET COUNT 335 10^3/uL (130-450); RED BLOOD COUNT 2.86 10^6/uL (4.20-5.40); RED CELL DISTRIBUTION WIDTH 14.1 % (12.0-15.0); WHITE BLOOD COUNT 11.9 x10^3/uL (4.8-10.8)
[2022-06-09 13:15] LABS: CALCIUM 8.5 mg/dL (8.5-10.3); CREATININE 1.6 mg/dL (0.4-1.0); MAGNESIUM 2.1 mg/dL (1.7-2.8); PHOSPHORUS 3.9 mg/dL (2.5-4.6); POTASSIUM 4.1 mmol/L (3.5-5.0); URIC ACID 9.5 mg/dL (2.6-7.2)
== END 2022-06-09 08:43 | disposition home or self-care (01) ==
LOC: LAB.N 08:42
PROVIDERS: ATTEND Internal Medicine Nephrology
DX: N05.9 Unspecified nephritic syndrome with unspecified morphologic changes (principal); I50.32 Chronic diastolic (congestive) heart failure; N25.81 Secondary hyperparathyroidism of renal origin; E83.30 Disorder of phosphorus metabolism, unspecified; E83.40 Disorders of magnesium metabolism, unspecified; M10.00 Idiopathic gout, unspecified site; D70.9 Neutropenia, unspecified; D63.1 Anemia in chronic kidney disease
CPT/HCPCS: 36415; 80048; 83735; 83880; 83970; 84100; 84550; 85025

== ENCOUNTER 2022-07-09 08:18 | Outpatient (CLI) | payer MEDICARE, MEDICAID | END 2022-07-09 08:19 | disposition home or self-care (01) | LOC: LAB.N 08:18 | PROVIDERS: ATTEND Nurse Practitioner Family | DX: Z53.9 Procedure and treatment not carried out, unspecified reason (principal) | CPT/HCPCS: 82043; 82570 ==

== ENCOUNTER 2022-08-15 07:59 | Outpatient (CLI) | payer MEDICARE, MEDICAID ==
[2022-08-15 12:02] LABS: HCT - HEMATOCRIT 35.1 % (37.0-47.0); HGB - HEMOGLOBIN 10.9 g/dL (12.0-16.0); MEAN CORPUSCULAR HEMOGLOBIN 31.1 pg (27.0-31.0); MEAN CORPUSCULAR HGB CONC 31.1 g/dL (32.0-36.0); MEAN CORPUSCULAR VOLUME 100.3 fL (81.0-99.0); MEAN PLATELET VOLUME 10.5 fL (7.9-10.8); RED BLOOD COUNT 3.5 10^6/uL (4.20-5.40); RED CELL DISTRIBUTION WIDTH 12.6 % (12.0-15.0); WHITE BLOOD COUNT 12.9 x10^3/uL (4.8-10.8)
[2022-08-15 13:46] LABS: CALCIUM 9.1 mg/dL (8.5-10.3); CREATININE 1.7 mg/dL (0.4-1.0); POTASSIUM 4.3 mmol/L (3.5-5.0)
== END 2022-08-15 08:00 | disposition home or self-care (01) ==
LOC: LAB.N 07:59
PROVIDERS: ATTEND Internal Medicine Nephrology
DX: N05.9 Unspecified nephritic syndrome with unspecified morphologic changes (principal); I50.32 Chronic diastolic (congestive) heart failure; N25.81 Secondary hyperparathyroidism of renal origin; M10.00 Idiopathic gout, unspecified site; D70.9 Neutropenia, unspecified; D63.1 Anemia in chronic kidney disease
CPT/HCPCS: 36415; 80048; 83880; 83970; 84100; 84550; 85027

== ENCOUNTER 2022-10-22 07:41 | Outpatient (CLI) | payer MEDICARE, MEDICAID ==
[2022-10-22 12:26] LABS: ESTIMATED AVERAGE GLUCOSE 154 mg/dL (70-100)
== END 2022-10-22 07:42 | disposition home or self-care (01) ==
LOC: LAB.N 07:41
PROVIDERS: ATTEND Nurse Practitioner Family
DX: E11.22 Type 2 diabetes mellitus with diabetic chronic kidney disease (principal)
CPT/HCPCS: 36415; 83036

== ENCOUNTER 2023-03-02 09:07 | Outpatient (CLI) | payer MEDICARE, MEDICAID ==
[2023-03-02 12:59] LABS: HGB - HEMOGLOBIN 9.4 g/dL (12.0-16.0); MEAN CORPUSCULAR HEMOGLOBIN 30.8 pg (27.0-31.0); MEAN CORPUSCULAR HGB CONC 32.4 g/dL (32.0-36.0); MEAN CORPUSCULAR VOLUME 95.1 fL (81.0-99.0); MEAN PLATELET VOLUME 10.2 fL (7.9-10.8); RED BLOOD COUNT 3.05 10^6/uL (4.20-5.40); RED CELL DISTRIBUTION WIDTH 12.7 % (12.0-15.0); WHITE BLOOD COUNT 11.8 x10^3/uL (4.8-10.8)
[2023-03-02 13:25] LABS: CALCIUM 8.6 mg/dL (8.5-10.3); CREATININE 2.3 mg/dL (0.6-1.3); PHOSPHORUS 4.9 mg/dL (2.5-5.0); POTASSIUM 3.7 mmol/L (3.5-4.5)
[2023-03-02 13:27] LABS: ESTIMATED AVERAGE GLUCOSE 174 mg/dL (70-100); HEMOGLOBIN A1c% 7.7 % (4.27-6.07)
== END 2023-03-02 09:08 | disposition home or self-care (01) ==
LOC: LAB.N 09:07
PROVIDERS: ATTEND Internal Medicine Nephrology
DX: E11.9 Type 2 diabetes mellitus without complications (principal); N05.9 Unspecified nephritic syndrome with unspecified morphologic changes; N25.81 Secondary hyperparathyroidism of renal origin; D70.9 Neutropenia, unspecified; D63.1 Anemia in chronic kidney disease; E83.30 Disorder of phosphorus metabolism, unspecified
CPT/HCPCS: 36415; 80048; 83036; 83970; 84100; 85027

== ENCOUNTER 2023-04-06 08:44 | Outpatient (CLI) | payer MEDICARE, MEDICAID ==
[2023-04-06 12:13] LABS: BASOPHILS # (AUTO) 0.1 10^3/uL (0.0-0.1); BASOPHILS % (AUTO) 0.5 %; EOSINOPHILS # (AUTO) 0.2 10^3/uL (0.0-0.7); EOSINOPHILS % (AUTO) 1.6 %; HCT - HEMATOCRIT 33.3 % (37.0-47.0); HGB - HEMOGLOBIN 10.7 g/dL (12.0-16.0); LYMPHOCYTES # (AUTO) 1.3 10^3/uL (1.5-3.5); LYMPHOCYTES % (AUTO) 11.7 %; MEAN CORPUSCULAR HGB CONC 32.1 g/dL (32.0-36.0); MEAN CORPUSCULAR VOLUME 96.5 fL (81.0-99.0); MEAN PLATELET VOLUME 10.6 fL (7.9-10.8); MONOCYTES # (AUTO) 0.5 10^3/uL (0.0-1.0); MONOCYTES % (AUTO) 4.6 %; NEUTROPHILS # (AUTO) 8.6 10^3/uL (1.5-6.6); NEUTROPHILS % (AUTO) 80.3 %; PLT - PLATELET COUNT 335 10^3/uL (130-450); RED BLOOD COUNT 3.45 10^6/uL (4.20-5.40); RED CELL DISTRIBUTION WIDTH 12.6 % (12.0-15.0); WHITE BLOOD COUNT 10.7 x10^3/uL (4.8-10.8)
[2023-04-06 12:39] LABS: PHOSPHORUS 5.2 mg/dL (2.5-5.0)
[2023-04-06 12:53] LABS: CREATININE 2.8 mg/dL (0.6-1.3); POTASSIUM 3.9 mmol/L (3.5-4.5)
== END 2023-04-06 08:45 | disposition home or self-care (01) ==
LOC: LAB.N 08:44
PROVIDERS: ATTEND Internal Medicine Nephrology
DX: N05.9 Unspecified nephritic syndrome with unspecified morphologic changes (principal); I50.32 Chronic diastolic (congestive) heart failure; N25.81 Secondary hyperparathyroidism of renal origin; E83.30 Disorder of phosphorus metabolism, unspecified; D70.9 Neutropenia, unspecified; D63.1 Anemia in chronic kidney disease
CPT/HCPCS: 36415; 80048; 83880; 83970; 84100; 85025

== ENCOUNTER 2023-05-04 10:20 | Outpatient (CLI) | payer MEDICARE, MEDICAID ==
[2023-05-04 12:11] LABS: BASOPHILS # (AUTO) 0.1 10^3/uL (0.0-0.1); BASOPHILS % (AUTO) 0.5 %; EOSINOPHILS # (AUTO) 0.2 10^3/uL (0.0-0.7); EOSINOPHILS % (AUTO) 2.1 %; HCT - HEMATOCRIT 31.4 % (37.0-47.0); HGB - HEMOGLOBIN 10.1 g/dL (12.0-16.0); LYMPHOCYTES # (AUTO) 1.6 10^3/uL (1.5-3.5); LYMPHOCYTES % (AUTO) 14.8 %; MEAN CORPUSCULAR HEMOGLOBIN 31.2 pg (27.0-31.0); MEAN CORPUSCULAR HGB CONC 32.2 g/dL (32.0-36.0); MEAN CORPUSCULAR VOLUME 96.9 fL (81.0-99.0); MEAN PLATELET VOLUME 10.1 fL (7.9-10.8); MONOCYTES # (AUTO) 0.5 10^3/uL (0.0-1.0); MONOCYTES % (AUTO) 4.9 %; NEUTROPHILS # (AUTO) 8.2 10^3/uL (1.5-6.6); NEUTROPHILS % (AUTO) 76.4 %; PLT - PLATELET COUNT 307 10^3/uL (130-450); RED BLOOD COUNT 3.24 10^6/uL (4.20-5.40); RED CELL DISTRIBUTION WIDTH 13.4 % (12.0-15.0); WHITE BLOOD COUNT 10.7 x10^3/uL (4.8-10.8)
[2023-05-04 14:42] LABS: CALCIUM 8.6 mg/dL (8.5-10.3); CREATININE 1.9 mg/dL (0.6-1.3); PHOSPHORUS 4.8 mg/dL (2.5-5.0); POTASSIUM 4.1 mmol/L (3.5-4.5)
== END 2023-05-04 10:21 | disposition home or self-care (01) ==
LOC: LAB.N 10:20
PROVIDERS: ATTEND Internal Medicine Nephrology
DX: N05.9 Unspecified nephritic syndrome with unspecified morphologic changes (principal); I50.32 Chronic diastolic (congestive) heart failure; N25.81 Secondary hyperparathyroidism of renal origin; D70.9 Neutropenia, unspecified; D63.1 Anemia in chronic kidney disease
CPT/HCPCS: 36415; 80048; 83880; 83970; 84100; 85025

== ENCOUNTER 2023-06-26 20:44 | Outpatient (CLI) | payer MEDICARE, MEDICAID | END 2023-06-26 20:45 | disposition left against medical advice (07) | LOC: EMS 20:44 | DX: E11.649 Type 2 diabetes mellitus with hypoglycemia without coma (principal) ==

== ENCOUNTER 2023-06-27 08:00 | Outpatient (CLI) | payer MEDICARE, MEDICAID | END 2023-06-27 23:59 | disposition home or self-care (01) | LOC: LAB.N 08:00 | PROVIDERS: ATTEND Physician Assistant Medical | DX: L03.119 Cellulitis of unspecified part of limb (principal) | CPT/HCPCS: 87070; 87077; 87181; 87205 ==

== ENCOUNTER 2023-07-03 13:55 | Emergency (ER) | payer MEDICARE, MEDICAID ==
[2023-07-03 14:06] VITALS: O2SAT 100
--- NOTE | 2023-07-03 16:33 | XRAY Report ---
PROCEDURE: Hip w/Pelvis 2-3V RT INDICATIONS: fall TECHNIQUE: Frontal view of pelvis and lateral view of the right hip COMPARISON: None. FINDINGS: Severe left hip joint osteoarthritis. The right hip shows mild osteoarthritis and no trauma. IMPRESSION: Large body habitus, quality of visualization is mildly impaired. No trauma found. Severe left hip migdalia nt osteoarthritis. Reviewed by: Philippe Han MD on 07/03/2023 4:32 PM PST Approved by: Philippe Han MD on 07/03/2023 4:32 PM PST Station ID: [id number]
--- NOTE | 2023-07-03 19:07 | ED Physician Documentation ---
PD HPI LOWER EXT INJURY - Stated complaint Stated Complaint: UNABLE TO WALK - Chief complaint Chief Complaint: Trauma Ext - History obtained from History obtained from: Patient - Additional information Additional information: 78-year-old woman with schizophrenia, diabetes lives in an assisted living facility. History is difficult, but she is here for bilateral leg pain. History is difficult because she is a kind of rambling historian, for example she states that she has sores on her legs, I ask her how long she has had the sores for and she responds that they have been there for 6 weeks to 2 months. When asked how she got the sores. She states that it is from a fall a week ago. When asked to clarify when the sores started she again replies 2 months. She was started on antibiotic at [facility] yesterday. Were not sure what. She does not know what it is and it is not on her MAR from [place]. Review of her pharmacy history shows that she received a prescription for doxycycline 2 days ago and then ciprofloxacin yesterday. PD PAST MEDICAL HISTORY - Past Medical History Past Medical History: Yes Cardiovascular: Hypertension Respiratory: COPD Endocrine/Autoimmune: Type 2 diabetes GI: GERD : Other HEENT: None Psych: Schizophrenia - Past Surgical History Past Surgical History: No Ortho: Other - Present Medications Home Medications: Ambulatory Orders Medication Instructions Recorded Confirmed Albuterol Sulfate [Proair Hfa 2 puffs INH Q4H PRN 07/28/15 06/30/16 Inhaler] Carvedilol 25 mg ORAL BID 07/28/15 06/30/16 Fenofibrate 160 mg ORAL QPM 07/28/15 06/30/16 Ferrous Sulfate 325 mg ORAL BID 07/28/15 06/30/16 Lovastatin 40 mg ORAL QPM 07/28/15 06/30/16 OLANZapine [Zyprexa] 5 mg ORAL DAILY 07/28/15 07/01/16 Omeprazole [PriLOSEC] 20 mg ORAL DAILY 07/28/15 06/30/16 carBAMazepine [TEGretol] 400 mg ORAL BID 07/28/15 06/30/16 Acetaminophen [Tylenol] 650 mg PO Q6H PRN 07/31/15 06/30/16 Insulin Aspart [Novolog Flexpen] 2 - 12 unit SQ .ACHS SLIDING SCALE 07/31/15 07/01/16 OLANZapine [Zyprexa] 10 mg PO QPM 07/31/15 07/01/16 Albuterol 2.5 mg INH Q4H PRN 07/01/16 07/01/16 Aspirin [Aspirin EC] 81 mg PO DAILY 07/01/16 07/01/16 Cholecalciferol (Vitamin D3) 5,000 units PO DAILY 07/01/16 07/01/16 [Vitamin D3] Fluticasone/Salmeterol [Advair 1 puffs INH BID 07/01/16 07/01/16 250-50 Diskus] Furosemide [Lasix] 160 mg PO BID 07/01/16 07/01/16 Insulin Aspart [Novolog Flexpen] 15 unit SQ TIDWM 30 Days 07/01/16 insuln.pen Insulin Glargine [Lantus Solostar] 85 unit SQ DAILY PM 30 Days pen 07/01/16 Insulin Glargine,Hum.rec.anlog 65 unit SQ DAILY 30 Days 07/01/16 [Lantus Solostar] insuln.pen lisinopriL [Lisinopril] 5 mg PO DAILY 07/01/16 07/01/16 Doxycycline Hyclate [Vibramycin] 100 mg PO BID 10 Days #20 cap 12/27/21 - Allergies Allergies/Adverse Reactions: Allergies Allergy/AdvReac Type Severity Reaction Status Date / Time No Known Drug Allergies Allergy Verified 07/03/23 14:01 - Social History Does the pt smoke?: No Smoking Status: Never smoker Does the pt drink ETOH?: No Does the pt have substance abuse?: No - Immunizations Immunizations are current?: Yes PD ED PE NORMAL - Vitals Vital signs reviewed: Yes - General General: Alert and oriented X 3, No acute distress - Extremities Extremities: Other (4+ edema of both legs with venous stasis changes and a purulent ulcer at the anterior part of the lower left ontiveros. No painful range of motion at knees, hips.) - Neuro Neuro: Alert and oriented X 3, Normal speech Results - Vitals Vitals: Vital Signs - 24 hr 07/03/23 07/03/23 07/03/23 14:01 19:59 21:10 Temperature 36.5 C 35.4 C L Heart Rate 66 60 62 Respiratory 16 18 18 Rate Blood Pressure 138/55 H 112/48 L 141/73 H O2 Saturation 100 100 100 Oxygen O2 Source [] Room air O2 Source [] Room air O2 Source Room air - Labs Labs: Laboratory Tests 07/03/23 07/03/23 19:15 19:15 WBC 10.2 RBC 2.70 L Hgb 8.4 L Hct 27.4 L MCV 101.5 H MCH 31.1 H MCHC 30.7 L RDW 14.5 Plt Count 360 MPV 9.2 Neut # (Auto) 7.6 H Lymph # (Auto) 1.5 [place] # (Auto) 0.7 Eos # (Auto) 0.2 Baso # (Auto) 0.0 Absolute Nucleated RBC 0.00 Nucleated RBC % 0.0 Sodium 139 Potassium 4.3 Chloride 110 Carbon Dioxide 23 Anion Gap 6.0 BUN 32 H Creatinine 1.8 H Estimated GFR (MDRD) 27 L Glucose 65 L Calcium 8.2 L - Rads (name of study) Right view hip x-ray ordered from triage is grossly negative Relevant Findings:: Final report received, EMP independent interpretation of test PD Medical Decision Making - ED course ED course: 78-year-old woman with CKD, chronic edema, diabetes presents with worsening of chronic pedal edema and an open sore on the left leg. She is on antibiotics for this which were started in the last couple of days so really not looking like a treatment failure per se. Workup in the emergency department demonstrates a CBC with a normal white count at 10.2, hemoglobin of 8.4 which is a little lower than her usual but she is chronically anemic. She has chronic kidney disease which is at her baseline, if not slightly better than her usual recent labs. Departure - Departure Disposition: 01 Home, Self Care Clinical Impression: CKD stage 3 due to type 2 diabetes mellitus, Wound infection Leg hematoma Qualifiers: Encounter type: initial encounter Laterality: left Qualified Code(s): S80.12XA - Contusion of left lower leg, initial encounter Condition: Stable Record reviewed to determine appropriate education?: Yes Instructions: ED Wound Care Comments: You were seen today for swollen legs related to your kidney disease, and from the fall there is a hematoma in your left leg. That requires no specific treatment and will go away with time, but it can take quite some time for those to go away. At this point there is no reason to expect that the antibiotics were prescribed in the clinic are not the correct ones, but I would recommend you talk to your primary care physician about a wound care referral. Keep taking the antibiotic though. Return if worse. Elevate your legs is much as po ssible. Continue current medications. Forms: PCP List
[2023-07-03 19:21] LABS: BASOPHILS % (AUTO) 0.4 %; EOSINOPHILS # (AUTO) 0.2 10^3/uL (0.0-0.7); EOSINOPHILS % (AUTO) 2.4 %; HCT - HEMATOCRIT 27.4 % (37.0-47.0); HGB - HEMOGLOBIN 8.4 g/dL (12.0-16.0); LYMPHOCYTES # (AUTO) 1.5 10^3/uL (1.5-3.5); LYMPHOCYTES % (AUTO) 14.3 %; MEAN CORPUSCULAR HEMOGLOBIN 31.1 pg (27.0-31.0); MEAN CORPUSCULAR HGB CONC 30.7 g/dL (32.0-36.0); MEAN CORPUSCULAR VOLUME 101.5 fL (81.0-99.0); MEAN PLATELET VOLUME 9.2 fL (7.9-10.8); MONOCYTES # (AUTO) 0.7 10^3/uL (0.0-1.0); NEUTROPHILS # (AUTO) 7.6 10^3/uL (1.5-6.6); NEUTROPHILS % (AUTO) 74.3 %; PLT - PLATELET COUNT 360 10^3/uL (130-450); RED CELL DISTRIBUTION WIDTH 14.5 % (12.0-15.0); WHITE BLOOD COUNT 10.2 x10^3/uL (4.8-10.8)
[2023-07-03 19:33] LABS: CALCIUM 8.2 mg/dL (8.5-10.3); CREATININE 1.8 mg/dL (0.6-1.3); POTASSIUM 4.3 mmol/L (3.5-4.5)
[2023-07-03 22:32] VITALS: BP 111/64
--- NOTE | 2023-07-04 01:06 | Ultrasound Report ---
PROCEDURE: Duplex Ext Veins Bilateral INDICATIONS: Bilateral leg pain TECHNIQUE: Real-time imaging, as well as color and pulse Doppler interrogation, were performed of the deep veins of both legs from the inguinal ligament to the popliteal fossa. Attempted visualization of the calf veins was performed. COMPARISON: None FINDINGS: The deep veins are normally compressible, and free of intraluminal thrombus from the commo n femoral vein to the popliteal vein. Color and pulse Doppler demonstrate normal phasic intravascular flow in the proximal deep veins of the bilateral lower extremities. Limited evaluation of distal veins of the bilateral lower extremities secondary to marked subcutaneou s edema. Focal hypoechoic nonvascular collection in the proximal left calf measuring 4.9 x 1.4 x 2.4 cm. IMPRESSION: No deep venous thrombosis of the bilateral lower extremities from the common femoral vein to the prox imal popliteal vein. Evaluation of more distal veins in the calf are limited due to marked subcutaneous edema and skin thi ckening. Left medial proximal calf nonvascular hypoechoic area measuring up to 4.9 cm, possible fluid collecti on versus hematoma. Reviewed by: Kimberly Stevens MD on 07/04/2023 1:05 AM PST Approved by: Kimberly Stevens MD on 07/04/2023 1:05 AM PST Station ID: [id number]
== END 2023-07-03 22:39 | disposition home or self-care (01) ==
LOC: ED 13:55
DX: N18.30 Chronic kidney disease, stage 3 unspecified (principal); R60.0 Localized edema; S80.12XA Contusion of left lower leg, initial encounter; W19.XXXA Unspecified fall, initial encounter; L97.829 Non-pressure chronic ulcer of other part of left lower leg with unspecified severity; E11.622 Type 2 diabetes mellitus with other skin ulcer; Z79.4 Long term (current) use of insulin
CPT/HCPCS: 36415; 80048; 85025; 93970; 99284

== ENCOUNTER 2023-07-07 17:11 | Outpatient (CLI) | payer MEDICARE, MEDICAID | END 2023-07-07 23:59 | disposition critical access hospital (66) | LOC: EMS 17:11 | DX: R41.82 Altered mental status, unspecified (principal); R06.89 Other abnormalities of breathing; E11.649 Type 2 diabetes mellitus with hypoglycemia without coma; I48.91 Unspecified atrial fibrillation | CPT/HCPCS: A0425; A0427 ==

== ENCOUNTER 2023-07-07 17:33 | Emergency (ER) | payer MEDICARE, MEDICAID ==
[2023-07-07] MEDS ORDERED: DEXTROSE 50% ABBOJECT 25 GM/50 ML SYRINGE IVP STA ×2 (17:41→18:52)
[2023-07-07] MEDS ORDERED: DEXTROSE 50% ABBOJECT 25 GM/50 ML SYRINGE ONE (17:43)
--- NOTE | 2023-07-07 17:44 | ED Physician Documentation ---
PD HPI ALTERED MENTAL STATUS - Stated complaint Stated Complaint: FOUND DOWN - History obtained from History obtained from: Patient, EMS - Additional information Additional information: This is a 78-year-old female who resides at [facility]. She was apparently found down on her knees, unresponsive. Staff at the facility started CPR and then checked her blood sugar and noted it to be low. She was given glucose and return to baseline mentation. CPR was stopped and she received no ACLS medications or defibrillation. Patient arrives here awake and alert and has no complaints, she denies any headache, no chest pain or difficulty breathing, no abdominal pain nausea vomiting diarrhea, no urinary symptoms. She states she does not recall what happened. She normally walks with a walker and does not recall if she was walking with walker if she stumbled she does not recall any events prior to becoming unresponsive. Review of Systems Constitutional: reports: Reviewed and negative Eyes: reports: Reviewed and negative Ears: reports: Reviewed and negative Nose: reports: Reviewed and negative Throat: reports: Reviewed and negative Cardiac: reports: Reviewed and negative Respiratory: reports: Reviewed and negative GI: reports: Reviewed and negative : reports: Reviewed and negative Skin: reports: Reviewed and negative Musculoskeletal: reports: Reviewed and negative Neurologic: reports: Altered mental status, Unresponsive PD PAST MEDICAL HISTORY - Past Medical History Past Medical History: Yes Cardiovascular: Hypertension Respiratory: COPD Endocrine/Autoimmune: Type 2 diabetes GI: GERD : Other HEENT: None Psych: Schizophrenia - Past Surgical History Past Surgical History: No Ortho: Other - Present Medications Home Medications: Ambulatory Orders Medication Instructions Recorded Confirmed Albuterol Sulfate [Proair Hfa 2 puffs INH Q4H PRN 07/28/15 07/07/23 Inhaler] Fenofibrate 160 mg ORAL QPM 07/28/15 07/07/23 OLANZapine [Zyprexa] 2.5 mg ORAL DAILY 07/28/15 07/07/23 Omeprazole [PriLOSEC] 20 mg ORAL DAILY 07/28/15 07/07/23 carBAMazepine [TEGretol] 200 mg ORAL BID 07/28/15 07/07/23 Acetaminophen [Tylenol] 650 mg PO Q6H PRN 07/31/15 07/07/23 OLANZapine [Zyprexa] 5 mg PO QPM 07/31/15 07/07/23 Albuterol 2.5 mg INH Q4H PRN 07/01/16 07/07/23 Fluticasone/Salmeterol [Advair 1 puffs INH BID 07/01/16 07/07/23 250-50 Diskus] Insulin Aspart [Novolog Flexpen] 15 unit SQ TIDWM 30 Days 07/01/16 07/07/23 insuln.pen Atorvastatin [Lipitor] 20 mg PO QPM 07/07/23 07/07/23 Docusate Sodium [Dok] 100 mg PO DAILY PRN 07/07/23 07/07/23 Furosemide [Lasix] 40 mg PO BID 07/07/23 07/07/23 Insulin Glargine,Hum.rec.anlog 0 unit SUBQ DAILY PM 07/07/23 07/07/23 [Basaglar Kwikpen U-100] Ketoconazole [Nizoral A-D] 1 applic TP Q7D 07/07/23 07/07/23 Lactobacillus Acidophilus 1 each PO DAILY PRN 07/07/23 07/07/23 [Acidophilus] Melatonin 5 mg PO HS 07/07/23 07/07/23 Potassium Chloride [K-Dur] 20 meq PO QID 07/07/23 07/07/23 Spironolactone [Aldactone] 100 mg PO DAILY 07/07/23 07/07/23 calcitrioL [Rocaltrol] 0.25 mcg PO DAILY 07/07/23 07/07/23 carvediloL [Coreg] 3.125 mg PO BID 07/07/23 07/07/23 - Allergies Allergies/Adverse Reactions: Allergies Allergy/AdvReac Type Severity Reaction Status Date / Time No Known Drug Allergies Allergy Verified 07/07/23 17:36 - Social History Does the pt smoke?: No Smoking Status: Never smoker Does the pt drink ETOH?: No Does the pt have substance abuse?: No - Immunizations Immunizations are current?: Yes PD ED PE NORMAL - Vitals Vital signs reviewed: Yes - General General: Alert and oriented X 3, No acute distress, Well developed/nourished - HEENT HEENT: Atraumatic, PERRL, EOMI, Moist mucous membranes, Pharynx benign - Neck Neck: Supple, no meningeal sign, No adenopathy - Cardiac Cardiac: RRR, No murmur, No gallop, No rub, Strong equal pulses - Respiratory Respiratory: No respiratory distress, Clear bilaterally - Abdomen Abdomen: Normal bowel sounds, Soft, Non tender, Non distended, Other (Obese) - Derm Derm: Other (Chronic venous stasis changes bilateral lower legs with a nonhealing ulceration on the left lateral lower leg no erythema or purulent drainage.) - Extremities Extremities: No deformity, No tenderness to palpate, Normal ROM s pain, Other (2+ pitting edema bilateral lower extremities, weeping) - Neuro Neuro: Alert and oriented X 3, No motor deficit, No sensory deficit, Normal speech Eye Opening: Spontaneous Motor: Obeys Commands Verbal: Oriented GCS Score: 15 - Psych Psych: Normal mood, Normal affect Results - Vitals Vitals: Vital Signs - 24 hr 07/07/23 07/07/23 07/07/23 17:36 17:58 18:00 Temperature 35.6 C L Heart Rate 69 67 68 Respiratory 28 H 14 13 Rate Blood Pressure 125/72 141/65 H 129/59 L O2 Saturation 99 98 99 07/07/23 07/07/23 07/07/23 18:50 19:00 19:30 Temperature Heart Rate 72 75 78 Respiratory 13 17 27 H Rate Blood Pressure 149/93 H 140/94 H 158/96 H O2 Saturation 100 100 100 07/07/23 07/07/23 07/07/23 20:00 20:30 21:00 Temperature Heart Rate 79 79 76 Respiratory 17 19 13 Rate Blood Pressure 158/71 H 165/64 H 145/74 H O2 Saturation 100 100 100 Oxygen O2 Source [] Room air O2 Source [] Room air O2 Source Room air - EKG (time done) No standard instances EKG releavant findings:: EKG personally interpreted by author of this note. Relevant findings are: Rate: Rate (enter#) (69) Rhythm: NSR [place]: LAD Intervals: Prolonged [place], LBBB Ischemia: Normal ST segments Compare to prior EKG: Unchanged from prior EKG Computer interpretation: Agree with computer - Labs Labs: Laboratory Tests 07/07/23 07/07/23 07/07/23 17:45 17:45 17:45 WBC 9.5 RBC 2.37 L Hgb 7.5 L Hct 24.5 L MCV 103.4 H MCH 31.6 H MCHC 30.6 L RDW 14.6 Plt Count 282 MPV 8.8 Neut # (Auto) 7.7 H Lymph # (Auto) 1.0 L [place] # (Auto) 0.5 Eos # (Auto) 0.1 Baso # (Auto) 0.0 Absolute Nucleated RBC 0.00 Nucleated RBC % 0.0 Sodium 136 Potassium 3.7 Chloride 111 Carbon Dioxide 20 L Anion Gap 5.0 L BUN 31 H Creatinine 1.6 H Estimated GFR (MDRD) 31 L Glucose 39 L* Calcium 7.9 L Iron 40 L TIBC 202 L % Saturation 20 Transferrin 144 L Total Bilirubin 0.2 AST 25 ALT 15 Alkaline Phosphatase 66 Troponin I High Sens 10.5 Total Protein 5.9 L Albumin 3.0 L Globulin 2.9 Albumin/Globulin Ratio 1.0 Lipase 16 07/07/23 19:50 WBC RBC Hgb Hct MCV MCH MCHC RDW Plt Count MPV Neut # (Auto) Lymph # (Auto) [place] # (Auto) Eos # (Auto) Baso # (Auto) Absolute Nucleated RBC Nucleated RBC % Sodium Potassium Chloride Carbon Dioxide Anion Gap BUN Creatinine Estimated GFR (MDRD) Glucose Calcium Iron TIBC % Saturation Transferrin Total Bilirubin AST ALT Alkaline Phosphatase Troponin I High Sens 17.3 H* Total Protein Albumin Globulin Albumin/Globulin Ratio Lipase - Rads (name of study) No standard instances Relevant Findings:: Final report received PD Medical Decision Making - ED course Complexity details: reviewed old records, reviewed results, re-evaluated patient, considered differential, d/w patient, d/w family ED course: 78-year-old female presented after being found down at her facility as described in HPI. On arrival here however the patient is awake alert conversant and in no acute distress. She is no complaints and appears to be in her usual state of health. She is oxygenating well on room air, vital signs are generally stable, however her glucose was found to be in the 40s again. Patient was given IV D50 and repeat glucose remained low thus she was given a repeat dose of D50 and ate an entire sandwich and snacks. Her blood glucose was monitored for another hour and a half or so and remained stable. There is her other lab work reveals a slightly decreased hemoglobin down to 7.5 this is down from prior though the patient does have chronic anemia. Iron studies were completed and are low. She has CKD and her creatinine is stable or improved from prior. Her initial high-sensitivity troponin was normal, repeat after an hour showed a slight elevation at 17 though I think this is not clinically significant, patient has no EKG changes, and given her chronic conditions And possible brief CPR, this would be expected. Patient is not having any chest pain. The patient has been awake alert conversant and in no acute distress here, she has eaten and has no new complaints. I do believe she is stable for discharge home at this time. I have advised her facility to check her glucose before meals and at bedtime. It sounds as though per patient's son, The facility only checks them twice a day. I discussed return precautions if any new or worsening symptoms and the patient was discharged back to her facility in stable condition. Departure - Departure Disposition: Home, Self Care Clinical Impression: Hypoglycemia associated with type 2 diabetes mellitus Altered mental state Qualifiers: Altered mental status type: transient alteration of awareness Qualified Code(s): R40.4 - Transient alteration of awareness Condition: Good Instructions: ED Diabetes Hypoglycemia Insulin React Comments: Shana has had frequent low blood sugars recently. I would like her blood sugar to be checked before each meal and before bedtime. She is on large amounts of insulin at home which can be problematic if she has not eaten per her regular or her mealtimes are off. This may result in severe hypoglycemia. If she is hypoglycemic, please give her glucose and encouraged her to have a snack. Her chronic anemia is somewhat worse than prior. This should be rechecked in the next week or so to ensure it does not continue to drop. Forms: PCP List
[2023-07-07 17:49] LABS: BASOPHILS % (AUTO) 0.4 %; EOSINOPHILS # (AUTO) 0.1 10^3/uL (0.0-0.7); EOSINOPHILS % (AUTO) 1.3 %; HCT - HEMATOCRIT 24.5 % (37.0-47.0); HGB - HEMOGLOBIN 7.5 g/dL (12.0-16.0); LYMPHOCYTES % (AUTO) 10.3 %; MEAN CORPUSCULAR HEMOGLOBIN 31.6 pg (27.0-31.0); MEAN CORPUSCULAR HGB CONC 30.6 g/dL (32.0-36.0); MEAN CORPUSCULAR VOLUME 103.4 fL (81.0-99.0); MEAN PLATELET VOLUME 8.8 fL (7.9-10.8); MONOCYTES # (AUTO) 0.5 10^3/uL (0.0-1.0); MONOCYTES % (AUTO) 5.1 %; NEUTROPHILS # (AUTO) 7.7 10^3/uL (1.5-6.6); NEUTROPHILS % (AUTO) 81.1 %; PLT - PLATELET COUNT 282 10^3/uL (130-450); RED BLOOD COUNT 2.37 10^6/uL (4.20-5.40); RED CELL DISTRIBUTION WIDTH 14.6 % (12.0-15.0); WHITE BLOOD COUNT 9.5 x10^3/uL (4.8-10.8)
[2023-07-07 18:04] LABS: BILIRUBIN,TOTAL 0.2 mg/dL (0.2-1.0); CALCIUM 7.9 mg/dL (8.5-10.3); CREATININE 1.6 mg/dL (0.6-1.3); POTASSIUM 3.7 mmol/L (3.5-4.5); TOTAL PROTEIN 5.9 g/dL (6.4-8.9)
[2023-07-07 18:09] LABS: TROPONIN I HIGH SENSITIVITY 10.5 ng/L (2.3-14.8)
[2023-07-07 18:16] LABS: % IRON SATURATION 20 % (20-50); IRON 40 ug/dL (50-212); TOTAL IRON BINDING CAPACITY 202 ug/dL (250-450); TRANSFERRIN 144 mg/dL (203-362)
--- NOTE | 2023-07-07 18:31 | XRAY Report ---
PROCEDURE: Chest 1V INDICATIONS: chest pain TECHNIQUE: One view of the chest was acquired. COMPARISON: 11/24/2020 FINDINGS: Surgical changes and devices: None. Lungs and pleura: Diffuse interstitial prominence. Stable streaky opacity of the right lower lung zo ne. No dense consolidation. No pneumothorax. Patchy opacities of the bilateral costophrenic angles li venkat representing small pleural effusions. Perihilar airway thickening. Mediastinum: Mediastinal contours appear normal. Heart size is mildly enlarged. Bones and chest wall: No suspicious bony lesions. Overlying soft tissues appear unremarkable. IMPRESSION: Cardiomegaly with findings suggestive of pulmonary edema/CHF. An infectious or inflammatory process m ay have a similar appearance if clinically appropriate. Reviewed by: Lionel Jackson MD on 07/07/2023 6:29 PM PST Approved by: Lionel Jackson MD on 07/07/2023 6:29 PM PST Station ID: [id number]
[2023-07-07 19:27] VITALS: O2SAT 100
[2023-07-07 21:25] VITALS: BP 145/74
== END 2023-07-07 22:52 | disposition home or self-care (01) ==
LOC: EDUNIT# → ED 17:33
DX: E11.649 Type 2 diabetes mellitus with hypoglycemia without coma (principal); I10 Essential (primary) hypertension; J44.9 Chronic obstructive pulmonary disease, unspecified; Z79.899 Other long term (current) drug therapy; Z79.51 Long term (current) use of inhaled steroids; Z79.4 Long term (current) use of insulin
CPT/HCPCS: 36415; 80053; 81001; 83540; 83690; 84466; 84484; 85025; 87086; 93005; 96374; 99284

== ENCOUNTER 2023-07-17 09:45 | Outpatient (CLI) | payer MEDICARE, MEDICAID | END 2023-07-17 09:46 | disposition E | LOC: EMS 09:45 | DX: I46.9 Cardiac arrest, cause unspecified (principal) | CPT/HCPCS: A0425; A0428 ==